=== PATIENT | male | born 1955 | race Caucasian/White ===

== ENCOUNTER 2017-08-13 13:30 | Inpatient (IN) | payer BC ==
[~2017-08-13] VITALS: Ht 175.3 cm; Wt 85.8 kg
[2017-08-13] MEDS ORDERED: SIMV20TA5 PO (13:46)
[2017-08-13 15:04] LABS: BASOPHILS % (AUTO) 0.4 % (0-1); EOSINOPHILS # (AUTO) 0.3 X10'3 (0-0.9); EOSINOPHILS % (AUTO) 4.4 % (0-6); LYMPHOCYTES # (AUTO) 1.8 X10'3 (1.1-4.8); MEAN CORPUSCULAR HEMOGLOBIN 31.8 PG (27.0-31.0); MEAN CORPUSCULAR HGB CONC 35.5 % (33.0-36.5); MEAN CORPUSCULAR VOLUME 89.8 FL (78-98); MEAN PLATELET VOLUME 8.1 FL (7.4-10.4); MONOCYTES # (AUTO) 0.4 X10'3 (0-0.9); MONOCYTES % (AUTO) 5.9 % (2-12); NEUTROPHILS % (AUTO) 62.3 % (42-75); PRE OP HEMATOCRIT 43.5 % (42.0-52.0); PRE OP HEMOGLOBIN 15.4 g/dL (14.0-17.9); PRE OP PLATELET COUNT 210 X10'3 (140-440); RED BLOOD COUNT 4.84 X10'6 (4.70-6.10); RED CELL DISTRIBUTION WIDTH 12.6 % (11.5-14.5)
[2017-08-13 15:14] LABS: PRE OP PROTIME 10.1 SECONDS (9.0-12.0)
[2017-08-13 15:17] LABS: CLARITY,URINE CLEAR (Clear); COLOR,URINE YELLOW (Yellow); GLUCOSE, URINE NEGATIVE (Neg); KETONES,URINE NEGATIVE (Neg); LEUKOCYTE ESTERASE ,URINE NEGATIVE (Neg); NITRITES, URINE NEGATIVE (Neg); OCCULT BLOOD,URINE TRACE-INTACT (Neg); PH,URINE 5.5 (4.8-8.0); PROTEIN,URINE NEGATIVE (Neg); UROBILINOGEN,URINE 0.2 E.U/dL (0.2-1.0)
[2017-08-13 15:18] LABS: ALBUMIN 3.9 G/DL (3.4-5.0); ALBUMIN/GLOBULIN RATIO 1.4 (1.1-1.5); ALKALINE PHOSPHATASE 132 IU/L (46-116); BLOOD UREA NITROGEN 22 MG/DL (7-18); BUN/CREATININE RATIO 26.5 (5.4-32.0); CALCIUM 8.7 MG/DL (8.5-10.1); CHLORIDE 106 MMOL/L (99-107); CREATININE 0.83 MG/DL (0.60-1.10); PRE OP ALT 58 U/L (30-65); PRE OP ANION GAP 8 (8-16); PRE OP AST 24 U/L (10-37); PRE OP BILIRUB, TOTAL 1.1 MG/DL (0.0-1.0); PRE OP GLUCOSE 94 MG/DL (70-104); PRE OP SODIUM 144 MMOL/L (135-145); TOTAL CARBON DIOXIDE 29.6 MMOL/L (24-32); TOTAL PROTEIN 6.7 G/DL (6.4-8.2); eGFR > 90 ML/MIN
[2017-08-13 15:22] LABS: UA COLLECTION TYPE CLN CATCH MIDSTREAM
[2017-08-13 15:26] LABS: RBC,URINE 0-2 /HPF (0-2); WBC,URINE 0-4 /HPF (0-4)
[2017-08-13 15:27] LABS: BACTERIA,URINE FEW /HPF (Neg); SQUAMOUS EPITHELIAL CELL,UR FEW /LPF (FEW)
[2017-08-13 15:28] LABS: MUCUS STRANDS MODERATE /LPF (Neg)
[2017-08-20] VITALS (20 sets, daily range): BP systolic 89–144; BP diastolic 56–87
[2017-08-20] MEDS ORDERED: ringers solution, lacted 1,000 ML IV SCH ×2 (05:00→10:27)
[2017-08-20] MEDS ORDERED: gabapentin 300mg capsule PO ONE (05:30)
[2017-08-20] MEDS ORDERED: acetaminophen 325mg tablet PO ONE (05:30)
[2017-08-20] MEDS ORDERED: oxyCODONE SR 10mg (sust. release) tab PO ONE (05:30)
[2017-08-20] MEDS ORDERED: famotidine 20mg tablet PO ONE (05:30)
[2017-08-20] MEDS ORDERED: metoclopramide 5 mg/ml inj IV ONE (05:30)
[2017-08-20] MEDS ORDERED: tranexamic acid inj. 1,000 MG in normal saline 100ml IV soln 90 ML IV ONE (05:30)
[2017-08-20] MEDS ORDERED: celeCOXIB 100mg capsule PO ONE (05:30)
[2017-08-20] MEDS ORDERED: vancomycin inj 1,500 MG in normal saline 300ml IV soln IV ONE (05:30)
[2017-08-20] MEDS ORDERED: ceFAZolin 2gm in dextrose, iso 100 ML IV ONE (05:30)
[2017-08-20] MEDS ORDERED: bisacodyl 10mg suppository rectal RC PRN (07:05)
[2017-08-20] MEDS ORDERED: magnesium hydroxide 30ml (MOM) UD suspension PO PRN (07:05)
[2017-08-20] MEDS ORDERED: acetaminophen 325mg tablet PO PRN (07:05)
[2017-08-20] MEDS ORDERED: oxyCODONE/APAP 10/325mg tablet PO PRN (07:05)
[2017-08-20] MEDS ORDERED: diphenhydrAMINE 25mg capsule PO PRN ×2 (07:05)
[2017-08-20] MEDS ORDERED: morphine 10mg/ml inj. IV PRN (07:05)
[2017-08-20] MEDS ORDERED: ondansetron/PF 4mg/2ml inj IV PRN ×2 (07:05→10:30)
[2017-08-20] MEDS ORDERED: LIDOcaine 1% (10mg/ml) 2ml vial ONE (07:10)
[2017-08-20] MEDS ORDERED: cloNIDine hcl/PF 100mcg/ml inj ONE (07:37)
[2017-08-20] MEDS ORDERED: epiNEPHrine 1 mg/ml inj ONE (07:37)
[2017-08-20] MEDS ORDERED: vancomycin 1,000mg inj ONE (07:37)
[2017-08-20] MEDS ORDERED: ketorolac trometh. 30mg/ml inj. ONE (07:37)
[2017-08-20] MEDS ORDERED: ROPIVAcaine 0.5% (5mg/ml) 30ml vial ONE (07:37)
[2017-08-20] MEDS: ascorbic acid 500mg tablet PO SCH ×2 (08:00→20:13)
[2017-08-20] MEDS: multivitamins, therapeutics tablet PO SCH (08:00)
[2017-08-20] MEDS ORDERED: cefazolin/dext.iso 2gm/50ml 50 ML IV SCH ×2 (08:00→16:00)
[2017-08-20] MEDS: aspirin 325mg tablet PO SCH (08:30)
[2017-08-20] MEDS ORDERED: BUPIVAcaine/PF 2.5 mg/ml (0.25%) 30ml vial ONE (08:35)
[2017-08-20] MEDS ORDERED: phenylephrine 10mg/ml inj IV ONE (08:35)
[2017-08-20] MEDS ORDERED: morphine /PF 1mg/ml 10ml inj. ONE (08:40)
[2017-08-20] MEDS ORDERED: midazolam 2 mg/2 ml injection ONE (08:41)
[2017-08-20] MEDS ORDERED: dexamethasone sod phosphate 4mg/ml inj. ONE (09:31)
[2017-08-20] MEDS ORDERED: ondansetron/PF 4mg/2ml inj ONE (09:31)
[2017-08-20] MEDS ORDERED: propofol inj 20 ML IV ONE ×4 (09:53)
[2017-08-20] MEDS ORDERED: proCHLORperazine 10 MG/2 ml inj IV PRN (10:30)
[2017-08-20] MEDS ORDERED: HYDROmorphone inj. 0.5 MG/0.5 ML DISP.SYRIN IV PRN (10:30)
[2017-08-20] MEDS ORDERED: fentaNYL/PF 50MCG/1 ML 2ML syringe IV PRN (10:30)
[2017-08-20] MEDS: potassium cl 20mEq in 1/2 NS 1,000 ML IV SCH ×2 (15:05→23:57)
[2017-08-20] MEDS: ceFAZolin 2gm in dextrose, iso 100 ML IV SCH ×2 (15:05→23:55)
[2017-08-20] MEDS: atorvastatin 10mg tablet PO SCH (20:13)
[2017-08-20] MEDS: sennosides 8.6mg tablet PO SCH (20:13)
[2017-08-21 02:00] VITALS: BP 120/76
[2017-08-21] MEDS: oxyCODONE/APAP 10/325mg tablet PO PRN ×4 (05:38→20:32)
[2017-08-21 06:00] VITALS: BP 131/90
[2017-08-21 06:04] LABS: BASOPHILS % (AUTO) 0.2 % (0-1); EOSINOPHILS # (AUTO) 0.1 X10'3 (0-0.9); EOSINOPHILS % (AUTO) 1.2 % (0-6); HEMATOCRIT 36.5 % (42.0-52.0); LYMPHOCYTES # (AUTO) 1.3 X10'3 (1.1-4.8); LYMPHOCYTES % (AUTO) 12.7 % (21-51); MEAN CORPUSCULAR HGB CONC 35.6 % (33.0-36.5); MEAN PLATELET VOLUME 7.8 FL (7.4-10.4); MONOCYTES # (AUTO) 0.8 X10'3 (0-0.9); MONOCYTES % (AUTO) 7.7 % (2-12); NEUTROPHILS % (AUTO) 78.2 % (42-75); PLATELET COUNT 191 X10'3 (140-440); RED BLOOD COUNT 4.06 X10'6 (4.70-6.10); RED CELL DISTRIBUTION WIDTH 12.6 % (11.5-14.5); WHITE BLOOD COUNT 10.2 X10'3 (4.5-11.0)
[2017-08-21 06:23] LABS: ANION GAP 10 (8-16); CHLORIDE 107 MMOL/L (99-107); POTASSIUM 4.3 MMOL/L (3.5-5.1); SODIUM 141 MMOL/L (135-145); TOTAL CARBON DIOXIDE 24.1 MMOL/L (24-32)
[2017-08-21] MEDS: aspirin 325mg tablet PO SCH (07:17)
[2017-08-21] MEDS: multivitamins, therapeutics tablet PO SCH (07:17)
[2017-08-21] MEDS: ascorbic acid 500mg tablet PO SCH ×2 (07:17→20:31)
[2017-08-21] MEDS: potassium cl 20mEq in 1/2 NS 1,000 ML IV SCH (08:43)
[2017-08-21 10:00] VITALS: BP 120/72
[2017-08-21] MEDS ORDERED: ASPI-1 PO (10:25)
[2017-08-21 18:00] VITALS: BP 107/72
[2017-08-21] MEDS ORDERED: Protein Shake (high protein) 240ml (8oz) cup PO SCH (18:00)
[2017-08-21] MEDS: sennosides 8.6mg tablet PO SCH (20:30)
[2017-08-21] MEDS: atorvastatin 10mg tablet PO SCH (20:31)
[2017-08-21 22:00] VITALS: BP 103/71
[2017-08-22] MEDS: oxyCODONE/APAP 10/325mg tablet PO PRN ×2 (00:58→05:11)
[2017-08-22 05:53] LABS: BASOPHILS % (AUTO) 0.3 % (0-1); EOSINOPHILS # (AUTO) 0.2 X10'3 (0-0.9); EOSINOPHILS % (AUTO) 2.1 % (0-6); HEMATOCRIT 34.9 % (42.0-52.0); HEMOGLOBIN 12.5 g/dl (14.0-17.9); LYMPHOCYTES # (AUTO) 1.6 X10'3 (1.1-4.8); LYMPHOCYTES % (AUTO) 18.3 % (21-51); MEAN CORPUSCULAR HEMOGLOBIN 32.1 PG (27.0-31.0); MEAN CORPUSCULAR HGB CONC 35.8 % (33.0-36.5); MEAN CORPUSCULAR VOLUME 89.8 FL (78-98); MEAN PLATELET VOLUME 7.6 FL (7.4-10.4); MONOCYTES # (AUTO) 0.9 X10'3 (0-0.9); MONOCYTES % (AUTO) 10.1 % (2-12); NEUTROPHILS % (AUTO) 69.2 % (42-75); PLATELET COUNT 149 X10'3 (140-440); RED BLOOD COUNT 3.88 X10'6 (4.70-6.10); WHITE BLOOD COUNT 8.7 X10'3 (4.5-11.0)
[2017-08-22 06:00] VITALS: BP 130/87
[2017-08-22] MEDS: ascorbic acid 500mg tablet PO SCH (07:46)
[2017-08-22] MEDS: aspirin 325mg tablet PO SCH (07:46)
[2017-08-22] MEDS: multivitamins, therapeutics tablet PO SCH (07:46)
== END 2017-08-22 11:00 | disposition home or self-care (01) | DRG 470 ==
LOC: EDSTATUS 13:30 → PAS IN 08-20 06:14 → EDSTATUS 08-20 09:00 → ORTHO 4S 08-20 11:32
PROVIDERS: ADMIT Orthopaedic Surgery; ATTEND Orthopaedic Surgery
PROC: 0SRB06Z Replacement of Left Hip Joint with Oxidized Zirconium on Polyethylene Synthetic Substitute, Open Approach (ICD-10-PCS; principal; 2017-08-20 08:35)
DX: M16.12 Unilateral primary osteoarthritis, left hip (principal); D62 Acute posthemorrhagic anemia; E78.5 Hyperlipidemia, unspecified; F17.200 Nicotine dependence, unspecified, uncomplicated; Z79.82 Long term (current) use of aspirin; Z79.899 Other long term (current) drug therapy
CPT/HCPCS: 36415; 71046; 72170; 80051; 80053; 81001; 85025; 85610; 85730; 86885; 86900; 86901; 87070; 97110; 97116; 97162; 97530; A4615; A7000; C1758; C1776; J0171; J0690; J0735; J1100; J1885; J2250; J2274; J2370; J2405; J2704; J2765; J2795; J3370; J3490; J7030; J7120

== ENCOUNTER 2020-03-11 15:47 | Emergency (ER) | payer BC, MEDICARE ==
[~2020-03-11] VITALS: Ht 175.3 cm; Wt 77.0 kg
[~2020-03-11 15:47] MED LIST: ASPI-1 PO; SIMV-42 PO
[2020-03-11 15:58] VITALS: BP 151/102
[2020-03-11] MEDS ORDERED: oxyCODONE/APAP 5-325mg tablet PO ONE (17:35)
[2020-03-11] MEDS ORDERED: OXYC-145 PO (18:13)
[2020-03-11] MEDS ORDERED: GABA300C PO (18:13)
== END 2020-03-11 18:36 | disposition home or self-care (01) ==
LOC: ER 15:47
DX: M54.5 Low back pain (principal); M25.552 Pain in left hip; R20.0 Anesthesia of skin; F17.200 Nicotine dependence, unspecified, uncomplicated; Z98.890 Other specified postprocedural states; Z72.89 Other problems related to lifestyle; Z79.82 Long term (current) use of aspirin; Z88.8 Allergy status to other drugs, medicaments and biological substances; Z79.899 Other long term (current) drug therapy
CPT/HCPCS: 72100; 73502; 99284